=== PATIENT | female | born 1985 | race American Indian/Alaskan Native ===

== ENCOUNTER 2020-05-29 22:30 | Emergency (ER) | payer SELFPAY | END 2020-05-29 23:08 | disposition left against medical advice (07) | LOC: ED 22:30 | DX: M25.511 Pain in right shoulder (principal); Z53.21 Procedure and treatment not carried out due to patient leaving prior to being seen by health care provider ==

== ENCOUNTER 2020-07-21 00:37 | Emergency (ER) | payer OTHER ==
[2020-07-21 01:30] VITALS: BP 128/86
[2020-07-21] MEDS ORDERED: KETOROLAC 30 MG/1 ML INJ IM ONE (03:42)
[2020-07-21] MEDS ORDERED: CLINDAMYCIN 300 MG CAP PO ONE (03:42)
[2020-07-21] MEDS ORDERED: ACETAMINOPHEN 500 MG TAB PO ONE (03:42)
--- NOTE | 2020-07-21 04:16 | Emergency Department Report ---
ED General Adult HPI - General Chief complaint: Dental/Oral Stated complaint: PAINFUL TOOTHACHE Source: patient Mode of arrival: Ambulatory Limitations: No Limitations - History of Present Illness Initial comments: Patient is a 34-year-old -[place] female with a history of hypertension who presents to the ED with complaint of acute onset persistent severe right mandibular premolar molar toothache with swollen gums for the last 5 days. Patient states that she was evaluated by a dentist 12 hours ago and started on oral antibiotics amoxicillin as well as ibuprofen 800 mg tablets. Patient states that she has taken these pain medications with no relief. Patient denies dizziness, syncope, nausea, vomiting, fever, chills, cough, sore throat, change in vision, neck pain, chest pain or shortness of breath, abdominal pain, nausea, vomiting or diarrhea. MD Complaint: Right mandibular premolar molar toothache with swollen gum -: Sudden, days(s) (5) Location: mouth Radiation: non-radiation Severity scale (0 -10): 7 Quality: aching, sharp Consistency: constant Improves with: none Worsens with: eating Associated Symptoms: denies other symptoms, headaches. denies: confusion, chest pain, cough, diaphoresis, fever/chills, loss of appetite, malaise, nausea/vomiting, rash, seizure, shortness of breath, syncope, weakness Treatments Prior to Arrival: NSAID - Related Data Previous Rx's Medication Instructions Recorded Last Taken Type Acetaminophen/Codeine [Tylenol 1 tab PO Q6H PRN #10 tab 07/21/20 Unknown Rx /Codeine # 3 tab] Ketorolac [Toradol] 10 mg PO Q8H PRN #20 tablet 07/21/20 Unknown Rx metroNIDAZOLE [Flagyl] 500 mg PO Q12HR #20 tab 07/21/20 Unknown Rx ED Review of Systems ROS: Stated complaint: PAINFUL TOOTHACHE Other details as noted in HPI Constitutional: denies: chills, fever Eyes: denies: eye pain, eye discharge, vision change ENT: dental pain, other (Right mandibular premolar and molar toothache and swollen gum). denies: ear pain, throat pain Respiratory: denies: cough, orthopnea, shortness of breath, SOB with exertion, wheezing Cardiovascular: denies: chest pain, palpitations Endocrine: no symptoms reported Gastrointestinal: denies: abdominal pain, nausea, vomiting, diarrhea Genitourinary: denies: urgency, dysuria, discharge Musculoskeletal: denies: back pain, joint swelling, arthralgia Skin: denies: rash, lesions Neurological: headache. denies: weakness, paresthesias Psychiatric: denies: anxiety, depression Hematological/Lymphatic: denies: easy bleeding, easy bruising ED Past Medical Hx - Past Medical History Previous Medical History?: Yes Hx Hypertension: Yes - Surgical History Past Surgical History?: No - Social History Smoking Status: Former Smoker Substance Use Type: None - Medications Home Medications: Home Medications Medication Instructions Recorded Confirmed Last Taken Type Acetaminophen/Codeine [Tylenol 1 tab PO Q6H PRN #10 tab 07/21/20 Unknown Rx /Codeine # 3 tab] Ketorolac [Toradol] 10 mg PO Q8H PRN #20 tablet 07/21/20 Unknown Rx metroNIDAZOLE [Flagyl] 500 mg PO Q12HR #20 tab 07/21/20 Unknown Rx ED Physical Exam - General Limitations: No Limitations General appearance: alert, in no apparent distress - Head Head exam: Present: atraumatic, normocephalic, normal inspection - Eye Eye exam: Present: normal appearance, PERRL, EOMI Pupils: Present: normal accommodation - ENT ENT exam: Present: mucous membranes moist, TM's normal bilaterally, normal external ear exam, other (Swollen severely tender right mandibular gingiva with premolar and molar teeth tenderness) - Neck Neck exam: Present: normal inspection, full ROM. Absent: tenderness, meningismus, lymphadenopathy, thyromegaly - Respiratory Respiratory exam: Present: normal lung sounds bilaterally. Absent: respiratory distress, wheezes, rhonchi, chest wall tenderness, decreased breath sounds, prolonged expiratory - Cardiovascular Cardiovascular Exam: Present: regular rate, normal rhythm, normal heart sounds. Absent: systolic murmur, diastolic murmur, rubs, gallop - GI/Abdominal GI/Abdominal exam: Present: soft, normal bowel sounds. Absent: tenderness, hyperactive bowel sounds, organomegaly - Extremities Exam Extremities exam: Present: normal inspection, full ROM, normal capillary refill - Back Exam Back exam: Present: normal inspection, full ROM. Absent: tenderness, CVA tenderness (R), CVA tenderness (L), muscle spasm, paraspinal tenderness, vertebral tenderness - Neurological Exam Neurological exam: Present: alert, oriented X3, CN II-XII intact, normal gait, r eflexes normal - Psychiatric Psychiatric exam: Present: normal affect, normal mood - Skin Skin exam: Present: warm, dry, intact, normal color. Absent: rash ED Course Vital Signs 07/21/20 01:25 Temperature 98.4 F Pulse Rate 68 Respiratory 18 Rate Blood Pressure 128/86 O2 Sat by Pulse 98 Oximetry ED Medical Decision Making - Medical Decision Making This is a 34-year-old -[place] female with a history of hypertension who presents to the ED with complaint of acute onset persistent severe right mandibular premolar molar toothache with swollen gums for the last 5 days. Patient states that she was evaluated by a dentist 12 hours ago and started on oral antibiotics amoxicillin as well as ibuprofen 800 mg tablets. Patient states that she has taken these pain medications with no relief. In the ED, patient is alert and oriented x3 and is not in distress. Patient was treated for pain in the ED. Patient is currently taking amoxicillin 500 mg every 8 hours with ibuprofen as needed for pain. On reevaluation, patient pain is well controlled with medication. Patient discharged home on more pain medications and advised to continue taking the previously prescribed antibiotics. Patient was advised to follow-up with her dentist in 7 to 10 days for reevaluation or return to the ED immediately if symptoms get worse. - Differential Diagnosis Dental abscess; dental caries; acute gingivitis; tension headache Critical care attestation.: If time is entered above; I have spent that time in minutes in the direct care of this critically ill patient, excluding procedure time. ED Disposition Clinical Impression: Dental abscess, Acute gingivitis, Dental caries Disposition: TO HOME OR SELFCARE Is pt being admited?: No Does the pt Need Aspirin: No Condition: Stable Instructions: Dental Abscess, [id number], Trench Mouth Additional Instructions: Take medication with food, drink plenty of fluids and follow-up with your [facility] care physician or dentist in 7 to 10 days for reevaluation. Continue taking the previously prescribed antibiotics in addition to the new prescriptions. Return to the ED immediately if symptoms get worse. Prescriptions: metroNIDAZOLE [Flagyl] 500 mg PO Q12HR #20 tab Ketorolac [Toradol] 10 mg PO Q8H PRN #20 tablet PRN Reason: Pain Acetaminophen/Codeine [Tylenol /Codeine # 3 tab] 1 tab PO Q6H PRN #10 tab PRN Reason: Pain , Severe (7-10) Referrals: [facility] [Outside] - 7-10 days Time of Disposition: 04:16 Print Language: BELARUSIAN
== END 2020-07-21 04:20 | disposition home or self-care (01) ==
LOC: ED 00:37
DX: K04.7 Periapical abscess without sinus (principal); K02.9 Dental caries, unspecified; K05.00 Acute gingivitis, plaque induced; I10 Essential (primary) hypertension; Z79.899 Other long term (current) drug therapy; Z87.891 Personal history of nicotine dependence
CPT/HCPCS: 96372; 99282; J1885